=== PATIENT | female | born 1975 | race African-American/Black ===

== ENCOUNTER 2017-02-15 14:07 | Outpatient (CLI) | payer OTHER ==
--- NOTE | 2017-02-15 14:47 | RAD ---
TWO VIEW RIGHT ANKLE: Clinical history: Pain. Disability evaluation. FINDINGS: There is post-operative fusion involving the right hindfoot. There is osteoarthritis of the right an kle, moderate in degree. No acute fracture. IMPRESSION: Post-operative right hindfoot. There is osteoarthritis without acute fracture of the right ankle. POS: [facility]
--- NOTE | 2017-02-15 14:49 | RAD ---
THREE VIEWS OF THE RIGHT HAND: Indication: Disability evaluation. Comparison: None. FINDINGS: Joint spaces are preserved. No acute fracture or subluxation is evident. 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 There is benign appearing excrescence seen off the radial aspect of the radial styloid. IMPRESSION: 1. No acute osseous abnormality. 2. Benign appearing excrescence seen off the radial aspect of the radial styloid. 3. Ulnar minus configuration at the DRUJ. POS: [facility]
== END 2017-02-15 14:08 | disposition home or self-care (01) ==
LOC: NAV RAD 14:07
PROVIDERS: ATTEND Family Medicine
DX: M06.879 Other specified rheumatoid arthritis, unspecified ankle and foot (principal); G56.00 Carpal tunnel syndrome, unspecified upper limb

== ENCOUNTER 2020-08-04 11:54 | Emergency (ER) | payer MEDICARE ==
[2020-08-04] MEDS ORDERED: Ibuprofen 800 MG TAB ONE (12:10)
== END 2020-08-04 12:14 | disposition home or self-care (01) ==
LOC: NAV ERS 11:54
DX: T25.122A Burn of first degree of left foot, initial encounter (principal); T31.0 Burns involving less than 10% of body surface; I10 Essential (primary) hypertension
CPT/HCPCS: 99283